=== PATIENT | female | born 1975 | race American Indian/Alaskan Native ===

== ENCOUNTER 2018-08-16 13:11 | Outpatient (CLI) | payer BC ==
--- NOTE | 2018-08-17 08:42 | Mammography Report ---
BILATERAL DIGITAL SCREENING MAMMOGRAM with CAD: 08/16/18 13:11:00 CLINICAL: Baseline screening.History of bilateral reduction mammoplasty. FINDINGS: There are scattered areas of fibroglandular density.Mild postsurgical scar. No mass, suspicious architectural distortion or suspicious calcifications. IMPRESSION: No mammographic evidence of malignancy. BI-RADS CATEGORY: 2 -- Benign RECOMMENDATION: Routine mammographic screening in one year. COMMENT: Patient follow-up letters are generated by our [employer] application.
== END 2018-08-16 13:12 | disposition home or self-care (01) ==
LOC: SPVWC 13:11
PROVIDERS: ATTEND Family Medicine
DX: Z12.31 Encounter for screening mammogram for malignant neoplasm of breast (principal)
CPT/HCPCS: 77067

== ENCOUNTER 2018-08-26 08:38 | Outpatient (CLI) | payer BC ==
--- NOTE | 2018-08-26 11:16 | Ultrasound Report ---
ABDOMINAL ULTRASOUND: 08/26/18 08:38:00 CLINICAL: Abdominal pain. FINDINGS: High-resolution ultrasound demonstrates a normal size liver with normal contour. No liver mass. Normal hepatic vasculature and inferior vena cava. The gallbladder is normally distended with no stones. The gallbladder wall measures 1.4 mm. Negative gallbladder Waldron's sign. Normal intrahepatic and extrahepatic bile ducts. The common bile duct measures 4.3 mm diameter. Normal pancreatic head and body but poor visualization of the pancreatic tail due to bowel gas. Normal abdominal aorta. A normal spleen measures 9.5 cm. Normal kidneys with normal echogenicity and normal non-dilated renal collecting systems and ureters. The right kidney measures 10.6 x 5.6 x 6.2 cm. The left kidney measures 11.2 x 5.5 x 5.1 cm. No renal mass or calculus. No ascites or mass. Ultrasound in the area of concern in the midline periumbilical region demonstrated a normal abdominal wall with normal subcutaneous fat. No abdominal wall hernia identified. IMPRESSION: Negative study with poor visualization of the pancreatic tail due to bowel gas.
--- NOTE | 2018-08-26 12:45 | Ultrasound Report ---
TRANSABDOMINAL AND TRANSVAGINAL PELVIC ULTRASOUND: 08/26/18 08:38:00 CLINICAL: Abdominal pain. FINDINGS: Transabdominal and transvaginal pelvic ultrasound demonstrated a mildly enlarged fibroid uterus measuring 12.6 x 4.4 x 8.0 cm. Anterior intramural fibroids in the uterine body measure 3.8 x 2.8 x 2.3 cm and 3.1 x 2.2 x 2.6 cm. The endometrial stripe is not visualized. Normal right ovary. The right ovary measures 3.4 x 2.1 x 3.3cm. A dominant follicle of the right ovary measures 2.1 cm. An echogenic area in the left ovary is consistent with a resolving follicle or a dermoid cyst of the ovary measuring 1.6 x 0.9 x 0.9 cm. The left ovary measures 2.7 x 1.6 x 2.2cm. No adnexal mass. No free fluid. Normal urinary bladder. IMPRESSION: 1. Uterine leiomyomata with a dominant 3.8 cm anterior intramural fibroid. 2. No endometrial thickening identified. 3. Normal right ovary. 4. A 1.6 cm dermoid cyst of the left ovary versus corpus albicans. CT of the pelvis may help resolve this question.
== END 2018-08-26 08:39 | disposition home or self-care (01) ==
LOC: SPVWC 08:38
PROVIDERS: ATTEND Family Medicine
DX: D25.1 Intramural leiomyoma of uterus (principal)
CPT/HCPCS: 76700; 76830; 76856